=== PATIENT | female | born 1965 ===

== ENCOUNTER 2018-06-03 11:04 | Emergency (ER) | payer MEDICAID ==
[2018-06-03 11:04] VITALS: BMI 26.5
[2018-06-03 11:13] VITALS: BP 120/69; PULSE 58; RESP 18; TEMP 97.5; O2SAT 99
[2018-06-03 12:00] LABS: SQUAMOUS EPITHIAL < 1 /hpf (0-5); URINE BILIRUBIN NEGATIVE (NEGATIVE); URINE BLOOD NEGATIVE (NEGATIVE); URINE CLARITY CLEAR (Clear); URINE COLOR YELLOW (YELLOW); URINE GLUCOSE (UA) NEG (Normal); URINE LEUKOCYTE ESTERASE MOD Leu/uL (Negative); URINE PROTEIN NEGATIVE (NEGATIVE); URINE UROBILINOGEN 0.2-1.0 mg/dL (0.2-1.0)
--- NOTE | 2018-06-03 13:20 | ED PDOC ---
HPI: Back Time Seen by Provider: 06/03/18 11:23 Chief Complaint (Nursing): Back Pain Chief Complaint (Provider): Back Pain History Per: Patient History/Exam Limitations: no limitations Onset/Duration Of Symptoms: Days (since 04/18/18) Current Symptoms Are (Timing): Still Present Additional Complaint(s): Lizzette Hare is a 52 year old female, with a past medical history of depression and gastritis, who presents to the emergency department for evaluation of lower back pain that radiates into her right leg onset April 18, 2018 while walking outside. Patient did not take any medication prior to arrival. She denies any falls or trauma, history of back injury, fever, chills, incontinence, saddle anesthesia, chest pain, abdominal pain, nausea, vomiting, diarrhea. Of note patient also reports urinary frequency, urgency, and dysuria for the past x2 weeks. Patient states she has a history of UTIs with similar symptoms but last UTI was years ago. She denies any flank pain, hematuria, vaginal bleeding or discharge. LMP in 2000. PMD: Janneth Pastrana Past Medical History Reviewed: Historical Data, Nursing Documentation, Vital Signs Vital Signs: Last Vital Signs Temp 97.5 F L 06/03/18 11:12 Pulse 58 L 06/03/18 11:12 Resp 18 06/03/18 11:12 BP 120/69 06/03/18 11:12 Pulse Ox 99 06/03/18 11:12 - Medical History PMH: Anxiety, Arthritis, Depression, Diverticulitis, Gastritis, Hypercholesterolemia - Surgical History Surgical History: Cholecystectomy, Endoscopy Other surgeries: bladder procedure for stress incontinence. benign mass removal from right breast. B/L bunion repair. Hysterectomy - Family History Family History: States: Unknown Family Hx - Social History Current smoker - smoking cessation education provided: No Alcohol: None Drugs: Denies - Home Medications Home Medications: Ambulatory Orders Medication Instructions Recorded Omeprazole 20 mg PO DAILY 11/12/16 DULoxetine [Cymbalta] 60 mg PO DAILY 12/02/16 Sucralfate [Carafate] 1 gm PO BID PRN #1 oral.susp 03/17/17 Albuterol HFA [Ventolin HFA 90 1 puff IH Q6 #1 inhaler 11/10/17 mcg/actuation (8 g)] Azithromycin 1 tab PO DAILY #4 tab 11/10/17 Prednisone [Deltasone] 40 mg PO DAILY #6 tablet 11/10/17 Promethazine/Codeine 10 ml PO Q6 #60 ml 11/10/17 [Phenergan/Codeine Oral Syrup] Nitrofurantoin Macrocrystals 1 cap PO BID #14 cap 11/28/17 [Macrobid] Ciprofloxacin [Cipro] 1 tab PO BID #14 tab 12/09/17 Dicyclomine [Dicyclomine HCl] 10 mg PO QID #14 cap 12/09/17 Famotidine [Pepcid] 20 mg PO BID #20 tab 12/09/17 Acetaminophen with Codeine 1 each PO Q6 PRN #12 tablet 12/17/17 [Tylenol with Codeine #3 Tablet] Ranitidine HCl [Zantac] 150 mg PO BID #20 tablet 12/20/17 Acetaminophen with Codeine 1 tab PO Q6 PRN #12 tab 05/18/18 [Tylenol with Codeine No. 3 300 mg-30 mg] Meloxicam [Mobic] 15 mg PO DAILY PRN #10 tab 06/03/18 Methocarbamol [Robaxin] 750 mg PO TID PRN #12 tab 06/03/18 Nitrofurantoin Macrocrystals 100 mg PO BID #14 cap 06/03/18 [Macrobid] Phenazopyridine HCl [Pyridium] 200 mg PO BID PRN #4 tablet 06/03/18 - Allergies Allergies/Adverse Reactions: Allergies Allergy/AdvReac Type Severity Reaction Status Date / Time tramadol Allergy RASH Verified 06/03/18 11:22 Review of Systems ROS Statement: Except As Marked, All Systems Reviewed And Found Negative Constitutional: Negative for: Fever, Chills Cardiovascular: Negative for: Chest Pain Gastrointestinal: Negative for: Nausea, Vomiting, Abdominal Pain, Diarrhea Genitourinary Female: Positive for: Dysuria, Frequency. Negative for: Incontinence, Hematuria, Vaginal Discharge, Vaginal Bleeding Musculoskeletal: Positive for: Back Pain (lower back radiates to rt leg) Physical Exam - Reviewed Nursing Documentation Reviewed: Yes Vital Signs Reviewed: Yes - Physical Exam Comments: GENERAL APPEARANCE: Patient is awake, alert, oriented x 3, in no acute distress. Resting comfortably, ambulatory in ED. SKIN: Warm, dry; (-) cyanosis. EYES: (-) conjunctival pallor. ENMT: Mucous membranes moist. Airway patent, (-) stridor. NECK: Supple, FROM (-) tenderness, (-) stiffness, (-) lymphadenopathy. CHEST AND RESPIRATORY: (-) rales, (-) rhonchi, (-) wheezes; breath sounds equal bilaterally. Speaking in full sentences, respirations even and nonlabored. HEART AND CARDIOVASCULAR: (-) irregularity; (-) murmur ABDOMEN AND GI: Soft; (+) mild suprapubic tenderness (-) distention (-) guarding (-) palpable mass (-)CVA tenderness BACK: (+)right paralumbar tenderness, (+) Right sciatic notch tenderness (-) direct bony tenderness, (-) deformity. Straight leg raising (+) at 15. EXTREMITIES: (-) deformity. Distal pulses good bilaterally. NEURO AND PSYCH: Mental status as above. Intact sensation bilaterally; normal strength in extension of the knees, plantar and dorsiflexion of the toes. Speech clear, (-) facial asymmetry (-) focal deficit. - ECG O2 Sat by Pulse Oximetry: 99 (RA) Pulse Ox Interpretation: Normal Medical Decision Making Medical Decision Making: Time: 11:23 Initial Impression: acute back pain probable sciatica, UTI Initial Plan: --Toradol 30 mg IM --Valium 5 mg PO (Not driving home) --Urine culture --Urinalysis --Reevaluation 13:25 -UA (+) UTI Macrobid and Pyridium PO ordered. 1340 On re-evaluation, patient reports improvement of symptoms. Ambulating in ED with steady, unassisted gait. On exam, patient remains AAOx3, in no acute distress. Lungs clear to auscultation, cardiac RRR, abdomen soft, non-tender, repeat neuro exam shows no focal findings. Lab /Diagnostic results d/w the patient in great detail. Diagnosis of acute back pain/sciatica with radicular pain of the right lower extremity, UTI d/w the patient. Based on history, exam and diagnostic results, plan will be for outpatient follow up. Patient instructed to follow-up with pmd / referral provided / the clinic in 1- 2 days without fail. Advised to take medication as prescribed. Return to the emergency room at any time for any new or worsening symptoms. Patient states she fully agrees with and understands discharge instructions. States that she agrees with the plan and disposition. Verbalized and repeated discharge instructions and plan. I have given the patient opportunity to ask any additional questions. Scribe Attestation: Documented by Scott Ortiz, acting as a scribe for Ria Colon PA-C. Provider Scribe Attestation: All medical record entries made by the Scribe were at my direction and personally dictated by me. I have reviewed the chart and agree that the record accurately reflects my personal performance of the history, physical exam, medical decision making, and the department course for this patient. I have also personally directed, reviewed, and agree with the discharge instructions and disposition. Disposition - Clinical Impression Clinical Impression: Low back pain, UTI (urinary tract infection), Sciatica, Radicular pain of lower extremity - Patient ED Disposition Is Patient to be Admitted: No Counseled Patient/Family Regarding: Studies Performed, Diagnosis, Need For Followup, Rx Given - Disposition Referrals: Janneth Pastrana MD [Staff Provider] - Disposition: Routine/Home Disposition Time: 13:41 Condition: STABLE Additional Instructions: FOLLOW UP WITH PMD IN 1-2 DAYS WITHOUT FAIL. RETURN TO ED WITH ANY NEW OR WORSENING SYMPTOMS. TAKE MEDICATION PRESCRIBED. The emergency medical care you received today was directed at your acute symptoms. If you were prescribed any medication, please fill it and take as directed. It may take several days for your symptoms to resolve. Return to the Emergency Department if your symptoms worsen, do not improve, or if you have any other problems. Please contact your doctor in 2 days for re-evaluation and follow up / or call one of the physicians/clinics you have been referred to that are listed on the Patient Visit Information form that is included in your discharge packet. Bring any paperwork you were given at discharge with you along with any medications you are taking to your follow up visit. Our treatment cannot replace ongoing medical care by a primary care provider (PCP) outside of the emergency department. Prescriptions: Meloxicam [Mobic] 15 mg PO DAILY PRN #10 tab PRN Reason: Pain, Moderate (4-7) Methocarbamol [Robaxin] 750 mg PO TID PRN #12 tab PRN Reason: Muscle Spasm Nitrofurantoin Macrocrystals [Macrobid] 100 mg PO BID #14 cap Phenazopyridine HCl [Pyridium] 200 mg PO BID PRN #4 tablet PRN Reason: URINARY DISCOMFORT Instructions: Urinary Tract Infections in Adults, Sciatica, Low Back Pain (DC) , Radiculopathy (DC), Do I Need an X-ray (or Other Test) for Low Back Pain? Forms: [employer] (Filipino) Print Language: PORTUGUESE - POA Present On Arrival: None Results - Lab Results Lab Results: 06/03/18 11:45 Urine Color Yellow Urine Clarity Clear Urine pH 8.0 Ur Specific [place] 1.009 Urine Protein Negative Urine Glucose (UA) Neg Urine Ketones Negative Urine Blood Negative Urine Nitrate Negative Urine Bilirubin Negative Urine Urobilinogen 0.2-1.0 Ur Leukocyte Esterase Mod Urine RBC (Auto) 4 H Urine Microscopic WBC 7 H Ur Squamous Epith Cells < 1
== END 2018-06-03 14:00 | disposition home or self-care (01) ==
LOC: H.ER 11:04
DX: M54.41 Lumbago with sciatica, right side (principal); E78.00 Pure hypercholesterolemia, unspecified; N39.0 Urinary tract infection, site not specified; F32.9 Major depressive disorder, single episode, unspecified; F41.9 Anxiety disorder, unspecified
CPT/HCPCS: 81003; 87086; 96372; 99282; J1885

== ENCOUNTER 2018-12-24 08:59 | Emergency (ER) | payer MEDICAID ==
[2018-12-24 09:00] VITALS: BMI 26.5
--- NOTE | 2018-12-24 09:18 | ED PDOC ---
HPI: Abdomen Time Seen by Provider: 12/24/18 09:09 History Per: Patient Onset/Duration Of Symptoms: Other (3 weeks) Current Symptoms Are (Timing): Still Present Severity: Moderate Location Of Pain/Discomfort: RUQ, Epigastric Quality Of Discomfort: Unable To Describe Associated Symptoms: denies: Fever, Nausea, Vomiting, Diarrhea Exacerbating Factors: None Alleviating Factors: None Additional Complaint(s): Epigastric and RUQ abd pain x 3 weeks.Not assoc with NVD. Denies fever. No improvement with Pepcid. No blood in stool. No urinary sxs. Past Medical History Vital Signs: Last Vital Signs Temp 97.7 F 12/24/18 09:03 Pulse 66 12/24/18 09:03 Resp 20 12/24/18 09:03 BP 140/78 12/24/18 09:03 Pulse Ox 96 12/24/18 09:03 - Medical History PMH: Anxiety, Arthritis, Depression, Diverticulitis, Gastritis, Hypercholesterolemia, Kidney Stones, Chronic Kidney Disease - Surgical History Surgical History: Cholecystectomy, Endoscopy, - Family History Family History: States: Unknown Family Hx - Immunization History Hx Tetanus Toxoid Vaccination: No Hx Influenza Vaccination: No Hx Pneumococcal Vaccination: No - Home Medications Home Medications: Ambulatory Orders Medication Instructions Recorded Omeprazole 40 mg PO DAILY 12/02/18 Famotidine [Pepcid] 20 mg PO BID #20 tab 12/12/18 Ondansetron ODT [Zofran ODT] 4 mg PO TID PRN #12 odt 12/12/18 Pantoprazole Sodium [Protonix] 40 mg PO DAILY #30 tablet. 12/24/18 - Allergies Allergies/Adverse Reactions: Allergies Allergy/AdvReac Type Severity Reaction Status Date / Time tramadol Allergy RASH Verified 12/12/18 15:33 Review of Systems ROS Statement: Except As Marked, All Systems Reviewed And Found Negative Gastrointestinal: Positive for: Abdominal Pain Physical Exam - Reviewed Nursing Documentation Reviewed: Yes Vital Signs Reviewed: Yes - Physical Exam Appears: Positive for: Non-toxic, No Acute Distress Head Exam: Positive for: ATRAUMATIC, NORMAL INSPECTION, NORMOCEPHALIC Skin: Positive for: Normal Color, Warm, DRY Eye Exam: Positive for: EOMI, Normal appearance, PERRL ENT: Positive for: Normal ENT Inspection Neck: Positive for: Normal, Painless ROM Cardiovascular/Chest: Positive for: Regular Rate, Rhythm Respiratory: Positive for: CNT, Normal Breath Sounds Gastrointestinal/Abdominal: Positive for: Soft, Tenderness (Epigastric and RUQ) Back: Positive for: Normal Inspection Extremity: Positive for: Normal ROM Neurologic/Psych: Positive for: Alert, Oriented - Laboratory Results Result Diagrams: 12/24/18 09:00 12/24/18 09:00 - ECG O2 Sat by Pulse Oximetry: 96 Medical Decision Making Medical Decision Making: Unlikely to be diverticulitis as no fever or diarrhea. Had US 05/2018 which revealed nl GB, unlikely to have gallstones so will obtain CT abd 0950 US Abdomen FINDINGS: LIVER: Measures 13.1 cm in length. Normal echogenicity of the liver parenchyma. No mass. No intrahepatic bile duct dilatation. Normal hepatopetal portal venous flow. GALLBLADDER: Unremarkable. No gallstones. COMMON BILE DUCT: Measures mm. No stones. No dilatation. PANCREAS: 4 RIGHT KIDNEY: Measures 11.1 cm in length. Normal echogenicity. No calculus, mass, or hydronephrosis. AORTA: No aneurysmal dilatation. IVC: Unremarkable. OTHER FINDINGS: None . IMPRESSION: Unremarkable examination. No evidence of cholelithiasis or cholecystitis. 1137 CT A/P FINDINGS: LOWER THORAX: Unremarkable. LIVER: Unremarkable. No gross lesion or ductal dilatation. GALLBLADDER AND BILE DUCTS: Unremarkable. PANCREAS: Unremarkable. No gross lesion or ductal dilatation. SPLEEN: Unremarkable. ADRENALS: Unremarkable. No mass. KIDNEYS AND URETERS: Unremarkable. No hydronephrosis. No solid mass. VASCULATURE: Unremarkable. No aortic aneurysm. No aortic atherosclerotic calcification or mural plaque present. BOWEL: Unremarkable. No obstruction. No gross mural thickening. APPENDIX: The appendix is significant only for a small proximal appendicolith. No evidence of appendicitis. PERITONEUM: Unremarkable. No free fluid. No free air. LYMPH NODES: Unremarkable. No enlarged lymph nodes. BLADDER: Unremarkable. REPRODUCTIVE: Normal prostate BONES: No acute fracture. OTHER FINDINGS: None. IMPRESSION: No acute abnormality. Incidentally noted appendicolith without evidence of appendicitis. Otherwise unremarkable examination. Disposition - Clinical Impression Clinical Impression: Gastritis - Patient ED Disposition Is Patient to be Admitted: No Counseled Patient/Family Regarding: Studies Performed, Diagnosis, Need For Followup, Rx Given - Disposition Referrals: [facility] [Outside] Disposition: Routine/Home Disposition Time: 11:48 Condition: FAIR Prescriptions: Pantoprazole Sodium [Protonix] 40 mg PO DAILY #30 tablet.dr Instructions: Gastritis Print Language: SAMI
--- NOTE | 2018-12-24 10:06 | US ---
Date of service: 12/24/2018 HISTORY: RUQ pain COMPARISON: None. TECHNIQUE: Sonographic evaluation of the right upper quadrant of the abdomen. FINDINGS: LIVER: Measures 13.1 cm in length. Normal echogenicity of the liver parenchyma. No mass. No intrahepatic bile duct dilatation. Normal hepatopetal portal venous flow. GALLBLADDER: Unremarkable. No gallstones. COMMON BILE DUCT: Measures mm. No stones. No dilatation. PANCREAS: 4 RIGHT KIDNEY: Measures 11.1 cm in length. Normal echogenicity. No calculus, mass, or hydronephrosis. AORTA: No aneurysmal dilatation. IVC: Unremarkable. OTHER FINDINGS: None . IMPRESSION: Unremarkable examination. No evidence of cholelithiasis or cholecystitis.
[2018-12-24 10:13] LABS: BASO # 0.1 K/uL (0.0-0.2); BASO % 1.3 % (0.0-2.0); EOS # 0.8 K/uL (0.0-0.7); EOS % 15.5 % (0.0-4.0); HEMOGLOBIN 12.2 g/dL (12.0-16.0); LYMPH # 1.6 K/uL (1.0-4.3); LYMPH % 29.3 % (20.0-40.0); MEAN CELL VOLUME 85.9 fl (81.0-99.0); MEAN CORPUSCULAR HEMOGLOBIN 28.1 pg (27.0-31.0); MEAN CORPUSCULAR HGB CONC 32.8 g/dL (33.0-37.0); MONO # 0.4 K/uL (0.0-0.8); MONO % 7.3 % (0.0-10.0); NEUT # 2.5 K/uL (1.8-7.0); NEUT % 46.6 % (50.0-75.0); NRBC % 0.1 % (0.0-0.0); RBC 4.35 Mil/uL (3.80-5.20); RED CELL DISTRIBUTION WIDTH 14.3 % (11.5-14.5); WHITE BLOOD COUNT 5.5 K/uL (4.8-10.8)
[2018-12-24 10:41] LABS: ALB/GLOB RATIO 1.3 (1.0-2.1); ALBUMIN 4.4 g/dL (3.5-5.0); ALT/SGPT 23 U/L (9-52); AST/SGOT 25 U/L (14-36); BLOOD UREA NITROGEN 24 mg/dl (7-17); CALCIUM 9.2 mg/dL (8.4-10.2); GFR NON-AFRICAN AMERICAN > 60; LIPASE 50 U/L (23-300)
[2018-12-24] MEDS ORDERED: Iohexol 300 100 ML IJ ONE (10:49)
[2018-12-24] MEDS ORDERED: Sodium Chloride 0.9% 50 ML IV ONE (10:49)
--- NOTE | 2018-12-24 11:40 | CT ---
Date of service: 12/24/2018 PROCEDURE: CT Abdomen and Pelvis with contrast HISTORY: Abd pain COMPARISON: None. TECHNIQUE: Contrast dose: 95 cc Omnipaque 300 Radiation dose: Total exam DLP = 637.51 mGy-cm. This CT exam was performed using one or more of the following dose reduction techniques: Automated exposure control, adjustment of the mA and/or kV according to patient size, and/or use of iterative reconstruction technique. FINDINGS: LOWER THORAX: Unremarkable. LIVER: Unremarkable. No gross lesion or ductal dilatation. GALLBLADDER AND BILE DUCTS: Unremarkable. PANCREAS: Unremarkable. No gross lesion or ductal dilatation. SPLEEN: Unremarkable. ADRENALS: Unremarkable. No mass. KIDNEYS AND URETERS: Unremarkable. No hydronephrosis. No solid mass. VASCULATURE: Unremarkable. No aortic aneurysm. No aortic atherosclerotic calcification or mural plaque present. BOWEL: Unremarkable. No obstruction. No gross mural thickening. APPENDIX: The appendix is significant only for a small proximal appendicolith. No evidence of appendicitis. PERITONEUM: Unremarkable. No free fluid. No free air. LYMPH NODES: Unremarkable. No enlarged lymph nodes. BLADDER: Unremarkable. REPRODUCTIVE: Normal prostate BONES: No acute fracture. OTHER FINDINGS: None. IMPRESSION: No acute abnormality. Incidentally noted appendicolith without evidence of appendicitis. Otherwise unremarkable examination.
[2018-12-24 13:12] VITALS: BP 135/67; PULSE 69; RESP 17; TEMP 97.8; O2SAT 99
== END 2018-12-24 12:00 | disposition home or self-care (01) ==
LOC: H.ER 08:59
DX: K29.70 Gastritis, unspecified, without bleeding (principal); Z86.59 Personal history of other mental and behavioral disorders; N18.9 Chronic kidney disease, unspecified; Z87.442 Personal history of urinary calculi; Z88.8 Allergy status to other drugs, medicaments and biological substances
CPT/HCPCS: 74177; 76705; 80053; 83690; 85025; 96374; 99283; Q9967